=== PATIENT | female | born 2000 | race Caucasian/White ===

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

== ENCOUNTER 2021-04-15 13:26 | Emergency (ER) | payer BC, SELFPAY ==
[2021-04-15 14:14] VITALS: BP 107/65; PULSE 78; RESP 19; TEMP 36.4; O2SAT 100; BMI 20.3
[2021-04-15 14:28] VITALS: BP 107/65; PULSE 78; RESP 16; TEMP 36.4
--- NOTE | 2021-04-15 14:38 | HMH.EDUTC ---
[facility] [place] Impression: Viral syndrome, RSV exposure Pharyngitis Qualifiers: Pharyngitis/tonsillitis etiology: unspecified etiology Qualified Code(s): J02.9 - Acute pharyngitis, unspecified Disposition: Left Without Being Seen Condition on Discharge: Good Instructions: DI for Respiratory Syncytial Virus -- Adults, DI for Viral Syndrome Additional Instructions: Drink plenty of fluids. Take tylenol for pain or fever. Return if you begin to have difficulty breathing. Follow up with your regular doctor. GO TO THE ER FOR ANY WORSENING SYMPTOMS Quarantine until you know the results of your covid-19 test. If it is positive, the health department should call you and give you further instructions about your length of Quarantine and other things. Notify your school or workplace of your results and follow their instructions regarding return to work/school. Prescriptions: Brompheniramine/Pseudoephed/Dm [Bromfed Dm Cough Syrup] 5 ml PO Q6HP PRN #240 ml PRN Reason: Cough Transmission Status: Received by [facility] Azithromycin [Z-Travon 250mg Tab*] 250 mg PO UD DOSE PK #6 tab Transmission Status: Received by [facility] Referrals: Spencer Fregoso MD [Primary Care Provider] - Forms: Work/School Release Time of Disposition: 14:47 Medical Decision Making - Medical Records Medical records reviewed: No: I reviewed the patient's medical records. - Russ Inquiry Pt receiving controlled substance: No Vital Signs: 04/15/21 14:14 04/15/21 14:28 Temperature 97.5 F L 97.5 F L Temperature Source Oral Pulse Rate 78 Pulse Rate [Left] 78 Respiratory Rate 19 16 Blood Pressure 107/65 L Blood Pressure [Right Arm] 107/65 L Blood Pressure Mean [Right Arm] 79 02 Sat by Pulse Oximetry 100 - Lab Data Lab results reviewed: Yes: I reviewed the patient's lab results. Lab Results 04/15/21 14:21: Strep Scn Rapid Clinic Negative Orders (Tests/Meds): ORDERS Category Date Time Status Strep Screen Confirmation Stat Micro 04/15/21 14:21 [place] [facility] [place] - General Stated complaint: cough sore throat runny nose congestion Time Seen by Provider: 04/15/21 14:38 Mode of Arrival: Ambulatory Source of Information: Patient Limitations: No Limitations Description of Symptoms (Recalled from Triage Doc. by RN): PT C/O A SORE THROAT, COUGH AND RUNNY NOSE. HEENT Symptoms (Recalled from RN notes): Yes (SORE THROAT AND NASAL DRAINAGE) Resp Symptoms (Recalled from RN notes): Yes (COUGH) Skin Symptoms (Recalled from RN notes): No MS Symptoms (Recalled from RN notes): No Functional Status (Recalled from RN notes): NA - History of Present Illness Provider Complaint: She states that for the past 3 days she has had chilling, sore throat and she has felt bad. She gets strep throat often, so she is here to be checked for that. She gets tested for covid-19 twice per week for her job. Her covid test have been negative and her last one was yesterday. She was exposed to RSV last week by being around her nephew that has it. - Related Data Home Medications Medication Instructions Recorded Confirmed citalopram 10 mg tablet 10 mg PO DAILY 10/09/18 05/25/20 copper 380 square mm intrauterine INTRAUTERI 06/12/20 device Previous Rx's Medication Instructions Recorded Azithromycin [Z-Travon 250mg Tab*] 250 mg PO UD DOSE PK #6 tab 04/15/21 Brompheniramine/Pseudoephed/Dm 5 ml PO Q6HP PRN #240 ml 04/15/21 [Bromfed Dm Cough Syrup] Allergies Allergy/AdvReac Type Severity Reaction Status Date / Time No Known Allergies Allergy Verified 06/12/20 08:54 - Worker's Comp Is this a Worker's Comp case?: No [facility] History - Hepatitis A Screen Drug use history?: No High risk sexual behaviors?: No History of sexually transmitted infection?: No Currently employed?: No Childcare worker?: No Do you have indoor plumbing?: Yes Do you have electricity?: Yes Attestation statement::
[2021-04-15 18:35] LABS: UTC Strep Screen (Rapid) Negative (Negative)
== END 2021-04-15 15:01 | disposition home or self-care (01) ==
PROVIDERS: Emergency Provider Nurse Practitioner Family; PCP Family Medicine
DX: B34.9 Viral infection, unspecified (principal); J02.9 Acute pharyngitis, unspecified
CPT/HCPCS: 87880; 99203; G0463

== ENCOUNTER 2021-09-20 17:33 | Outpatient (CLI) | payer BC, SELFPAY | END 2021-09-20 18:02 | PROVIDERS: PCP Family Medicine; Visit Provider Nurse Practitioner Family | DX: Z11.1 Encounter for screening for respiratory tuberculosis (principal) | CPT/HCPCS: 86580 ==

== ENCOUNTER 2021-12-08 20:10 | Emergency (ER) | payer BC, SELFPAY ==
[2021-12-08 20:55] VITALS: BP 115/57; PULSE 78; RESP 16; TEMP 36.8; O2SAT 100; BMI 21.9
--- NOTE | 2021-12-08 20:59 | HMH.EDUTC ---
[facility] [place] Disposition Clinical Impression: UTI (urinary tract infection) Qualifiers: Urinary tract infection type: site unspecified Hematuria presence: with hematuria Qualified Code(s): N39.0 - Urinary tract infection, site not specified Disposition: Home, Self-Care Condition on Discharge: Good Instructions: Urinary Tract Infection, Urine Culture, DI for Urinary Tract Infection (UTI), Phenazopyridine Additional Instructions: Drink plenty of fluids. Take tylenol or ibuprofen for pain or fever. Take the medications as directed. Follow up with your regular doctor. GO TO THE ER FOR ANY WORSENING SYMPTOMS The pyridium will make your urine turn orange, this is an expected side effect. It will stain your clothes if it comes into contact with them. We will culture the urine. That will tell what bacteria is causing your infection and which antibiotics will treat it best. Sometimes the first antibiotic we prescribe turns out to not work against different bacteria. So, make sure you follow up within 3 days if you are not getting better. Prescriptions: Ondansetron [Zofran 4mg ODT] 4 mg PO Q8HP PRN #20 tab PRN Reason: Nausea Transmission Status: Pending to [facility] Sulfamethoxazole/Trimethoprim [Bactrim DS tablet] 1 each PO BID 5 Days #10 tab Transmission Status: Pending to [facility] Phenazopyridine HCl [Pyridium 200mg Tablet] 200 pow PO TID #6 tab Transmission Status: Pending to [facility] Referrals: Spencer Fregoso MD [Primary Care Provider] - Time of Disposition: 21:37 Medical Decision Making - Medical Records Medical records reviewed: No: I reviewed the patient's medical records. - Russ Inquiry Pt receiving controlled substance: No Vital Signs: 12/08/21 20:55 12/08/21 21:06 Temperature 98.3 F 98.3 F Temperature Source Oral Pulse Rate 78 Pulse Rate [Left] 78 Respiratory Rate 16 16 Blood Pressure 115/57 L Blood Pressure [Right Arm] 115/57 L Blood Pressure Mean [Right Arm] 76 02 Sat by Pulse Oximetry 100 - Lab Data Lab results reviewed: Yes: I reviewed the patient's lab results. Lab Results 12/08/21 20:57: Urine Color Dark yellow, Urine Appearance Turbid, Urine pH 5.5, Ur Specific Gordon > 1.030 H, Urine Protein 1+, Urine Glucose (UA) Negative, Urine Ketones Negative, Urine Blood Negative, Urine Nitrate Negative, Urine Bilirubin 1+ A, Urine Urobilinogen 0.2, Ur Leukocyte Esterase Negative Orders (Tests/Meds): ED MEDICATIONS Discontinued Medications Generic Name Dose Route Start Last Admin Trade Name Brockq PRN Reason Stop Dose Admin Ondansetron HCl 4 mg 12/08/21 21:31 12/08/21 21:35 Ondansetron 4mg Odt SL 12/08/21 21:32 4 mg ONCE ONE Administration Trimethoprim/Sulfamethoxazole 1 each 12/08/21 21:31 12/08/21 21:35 Sulfa/Trimethoprim 1 Tablet PO 12/08/21 21:32 1 each ONCE ONE Administration ORDERS Category Date Time Status Urine Culture Stat Micro 12/08/21 20:52 Received [facility] [place] HPI - General Stated complaint: POSSIBLE uti Time Seen by Provider: 12/08/21 20:59 Mode of Arrival: Ambulatory Source of Information: Patient Limitations: No Limitations Description of Symptoms (Recalled from Triage Doc. by RN): pt c/o urinary frequency and burning with urination. started this am. HEENT Symptoms (Recalled from RN notes): No Resp Symptoms (Recalled from RN notes): No Skin Symptoms (Recalled from RN notes): No MS Symptoms (Recalled from RN notes): No Functional Status (Recalled from RN notes): wnl - History of Present Illness Provider Complaint: She c/o urinary frequency and dysuria since around 1200 today. - Related Data Home Medications Medication Instructions Recorded Confirmed citalopram 10 mg tablet 10 mg PO DAILY 10/09/18 05/25/20 copper 380 square mm intrauterine INTRAUTERI 06/12/20 device Previous Rx's Medication Instructions Recorded Azithromycin [Z-Travon 250mg Tab*] 250
[2021-12-08 21:01] LABS: Apearance,Urine Turbid (Clear); Blood, Urine Negative (Negative); Color,Urine Dark Yellow (Yellow); Glucose,Urine (UA) Negative (Negative); Ketones,Urine Negative (Negative); PH,Urine 5.5 (5.0-8.5); Protein,Urine 1+ (Negative); Specific Gravity, Urine > 1.030 (1.005-1.030)
[2021-12-08 21:02] LABS: Bilirubin,Urine 1+ (Negative); UTC Leukocyte Esterase,Urine Negative (Negative); UTC Nitrate,Urine Negative (Negative); Urobilinogen,Urine 0.2 EU/dl (0.2)
[2021-12-08 21:06] VITALS: BP 115/57; PULSE 78; RESP 16; TEMP 36.8
== END 2021-12-08 21:39 | disposition home or self-care (01) ==
PROVIDERS: Emergency Provider Nurse Practitioner Family; PCP Family Medicine
DX: N39.0 Urinary tract infection, site not specified (principal); R35.0 Frequency of micturition; F32.A Depression, unspecified; F41.9 Anxiety disorder, unspecified
CPT/HCPCS: 81003; 87086; 99213; G0463

== ENCOUNTER → 2022-03-31 06:52 | Outpatient (CLI) | payer BC, SELFPAY ==
[2022-03-31 17:04] LABS: Basophils # 0.1 K/mm3 (0-0.2); Basophils % 1.2 % (0.1-2.0); Eosinophils % 0.5 % (0.1-12.0); Hematocrit 45.6 % (37.0-47.0); Hemoglobin 14.8 g/dL (12.2-16.2); Lymphocytes # 2.3 K/mm3 (0.7-4.5); Lymphocytes % 37.3 % (10-50); Mean Corpuscular HGB Conc 32.4 g/dL (31.8-35.4); Mean Corpuscular Hemoglobin 30.8 pg (27.0-31.2); Mean Corpuscular Volume 95.2 fl (81-99); Mean Platelet Volume 8.2 fl (7.4-10.4); Monocytes # 0.2 K/mm3 (0.1-1.0); Monocytes % 3.6 % (1.7-9.3); Neutrophils # 3.6 K/mm3 (1.8-7.8); Neutrophils % 57.5 % (37.0-80.0); Platelet Count 291 K/mm3 (142-424); Red Blood Count 4.79 M/mm3 (4.20-5.40); Red Cell Distribution Width 12.7 % (11.5-17.5); White Blood Count 6.2 K/mm3 (4.5-13.0)
[2022-03-31 17:25] LABS: Alanine Aminotransferase 20 U/L (12-78); Albumin Level 4.6 g/dl (3.5-5.0); Albumin/Globulin Ratio 1.6 (1.1-1.8); Alkaline Phosphatase 65 U/L (38-126); Anion Gap 14.1 mEq/L (5-15); Aspartate Amino Transferase 26 U/L (14-36); Bilirubin,Total 0.4 mg/dl (0.2-1.3); Blood Urea Nitrogen 7 mg/dl (7-17); Carbon Dioxide 22 mmol/L (22.0-30.0); Chloride 106 mmol/L (98-107); Chol/HDL Ratio 3.2 (1-3.5); Cholesterol 165 mg/dl (140-200); Estimated Glomerular Filt Rate 107 ml/min (>60); GFR (African American) 129 ML/MIN (>60); Globulin 2.8 g/dL (1.3-3.2); Glucose 141 mg/dl (74-100); HDL Cholesterol 51 mg/dl (40-60); Potassium 4.1 mmoL/L (3.5-5.1); Sodium 138 mmol/L (136-145); Total Protein,Serum 7.4 g/dl (6.3-8.2); Triglycerides 60 mg/dl (30-150); VLDL Cholesterol 12 mg/dL (0-40)
[2022-03-31 17:42] LABS: 25-OH Vitamin D, Total 51.4 ng/mL (30-100)
[2022-03-31 17:43] LABS: Free Thyroxine Index 2.4 ug/dL (5.93-13.13); Triiodothryronine (T3) Uptake 30 % (23.5-40.5)
[2022-03-31 17:57] LABS: Thyroid Stimulating Hormone 0.95 uIU/mL (0.465-4.68)
[2022-03-31 18:14] LABS: Vitamin B12 327 pg/mL (239-931)
[2022-04-01 08:50] LABS: Hemoglobin A1C 4.7 % (4.0-6.0)
[2022-04-02 08:36] LABS: Direct LDL Cholesterol 95 mg/dL (100-129)
[2022-04-02 10:18] LABS: FSH 2.6 mIU/mL (.); LH 3.6 mIU/mL (.); Progesterone 8.5 ng/mL (.); Testosterone,Total 24 ng/dL (13-71)
[2022-04-07 23:59] LABS: Estrogen 282 pg/mL (.)
== END ==
PROVIDERS: PCP Physician Assistant; Visit Provider Physician Assistant
DX: Z00.00 Encounter for general adult medical examination without abnormal findings (principal); L65.9 Nonscarring hair loss, unspecified; R53.83 Other fatigue; R63.5 Abnormal weight gain
CPT/HCPCS: 80053; 80061; 82306; 82607; 82672; 83001; 83002; 83036; 84144; 84403; 84436; 84443; 84479; 85025

== ENCOUNTER 2022-04-28 14:18 | Emergency (ER) | payer BC, SELFPAY ==
[2022-04-28] VITALS (7 sets, daily range): BP systolic 115–144; BP diastolic 50–93; PULSE 70–117; RESP 14–20; TEMP 36.6–37.1; O2SAT 96–100; BMI 21.9
--- NOTE | 2022-04-28 14:16 | ECG_ITS ---
APPROVED REPORT Exam: Resting ECG HR:98 bpm ECG Measurements Heart Rate 98 AXES NV 147 P 66 QRSd 88 QRS 79 QT 317 T 35 QTc 373 Conclusion SINUS RHYTHM NONSPECIFIC ST & T-WAVE ABNORMALITY BORDERLINE ECG UNCONFIRMED REPORT Electronically signed by : Wilfredo Mcallister MD 04/28/2022 19:22:04
--- NOTE | 2022-04-28 14:27 | XR_ITS ---
FINAL REPORT CLINICAL HISTORY: chest pain COMPARISON: 12/14/2018 FINDINGS: A single view of the chest was obtained. The heart is normal in size. The mediastinum is unremarkable. There is no active pulmonary disease. There is no pleural effusion. There is no pneumothorax. There is no acute osseous abnormality. IMPRESSION: No acute cardiopulmonary process. Reviewed, Interpreted and Dictated by Onel Krause III, MD Transcribed by Ritika Sousa Authenticated and [facility]
[2022-04-28 14:39] LABS: Basophils # 0.1 K/mm3 (0-0.2); Basophils % 1.5 % (0.1-2.0); Eosinophils # 0.1 K/mm3 (0.0-0.4); Eosinophils % 0.8 % (0.1-12.0); Hematocrit 46.1 % (37.0-47.0); Hemoglobin 15.2 g/dL (12.2-16.2); Lymphocytes # 2.9 K/mm3 (0.7-4.5); Lymphocytes % 32.4 % (10-50); Mean Corpuscular HGB Conc 32.9 g/dL (31.8-35.4); Mean Corpuscular Hemoglobin 31.2 pg (27.0-31.2); Mean Corpuscular Volume 94.9 fl (81-99); Mean Platelet Volume 7.3 fl (7.4-10.4); Monocytes # 0.5 K/mm3 (0.1-1.0); Monocytes % 5.2 % (1.7-9.3); Neutrophils # 5.3 K/mm3 (1.8-7.8); Neutrophils % 59.9 % (37.0-80.0); Platelet Count 270 K/mm3 (142-424); Red Blood Count 4.86 M/mm3 (4.20-5.40); Red Cell Distribution Width 12.6 % (11.5-17.5); White Blood Count 8.8 K/mm3 (4.5-13.0)
--- NOTE | 2022-04-28 14:40 | PC.NURSE ---
RAD in room
[2022-04-28 14:44] LABS: Chloride 105 mmol/L (98-107); Potassium 3.9 mmoL/L (3.5-5.1); Sodium 140 mmol/L (136-145)
[2022-04-28 14:47] LABS: Anion Gap 12.9 mEq/L (5-15); Blood Urea Nitrogen 7 mg/dl (7-17); Carbon Dioxide 26 mmol/L (22.0-30.0); Creatinine Clearance Estimated 112 mL/min (50-200); Estimated Glomerular Filt Rate 91 ml/min (>60); GFR (African American) 111 ML/MIN (>60)
[2022-04-28 14:48] LABS: Calcium 8.7 mg/dl (8.4-10.2); Glucose 98 mg/dl (74-100)
--- NOTE | 2022-04-28 15:09 | HMH.EDGENADL ---
Discharge Plan Disposition Patient Disposition: Home, Self-Care Condition: Good Prescriptions Prescriptions: No Action ParaGard T 380A 380 square mm intrauterine device INTRAUTERI venlafaxine 37.5 mg tablet 37.5 mg PO DAILY Referrals Follow up/Referrals: Sulema Patel APRN [Primary Care Provider] - See instructions Activity Restrictions/Add. Instructions Additional Instructions/Restrictions: Ibuprofen as needed for pain. Follow-up with primary care provider, call for appointment. Your CT scan suggested thickening of your esophagus, follow-up with your primary care provider for further evaluation. Clinical Impressions Clinical Impression: Chest pain, pleuritic Discharge ED Provider: Felix Mcgill General Adult HPI General Chief complaint: Chest Pain Stated complaint: chest pain Time Seen by Provider: 04/28/22 15:09 Mode of Arrival: Ambulatory Source of Information: Patient Limitations: No Limitations Description of Symptoms (Recalled from ER Triage Doc. by RN): to ed per pvt car with c/o sharp lt side chest pain radiating into back +sob, pt states pain worse with inspiration. pt denies any nausea, vomiting, fever, cough, pain or swelling in legs. History of Present Illness HPI narrative: Complains of left-sided chest pain that began last night. Pain increases when she lies on her left side. Also increases with inspiration. She began feeling short of breath today and therefore came to the emergency department. A couple of years ago she had a spontaneous pneumomediastinum with bilateral pneumothoraces. She says her current pain feels similar. No recent URI symptoms, although she says she tested positive for COVID on a routine test 2 weeks ago. She was asymptomatic. No fever. No hemoptysis. No leg pain or swelling. Related Data Home Medications Medication Instructions Recorded Confirmed copper 380 square mm intrauterine intrauterine 06/12/20 03/31/22 device (ParaGard T 380A) venlafaxine 37.5 mg tablet 37.5 mg PO DAILY 03/31/22 03/31/22 Allergies Allergy/AdvReac Type Severity Reaction Status Date / Time No Known Allergies Allergy Verified 03/31/22 08:36 [facility] PFS Social History Smoking Status: Current every day smoker tobacco type: cigarettes alcohol intake: never substance use type: denies use current occupational status: other Travel in the last 8 weeks: None household members: family housing: house ROS Obtained: Yes Systems reviewed as appropriate & no additional complaints except as documented Constitutional Constitutional: Denies fever(s) and Denies weakness ENT Ears, Nose, Mouth, and Throat: Denies nasal discharge and Denies sore throat Cardiovascular Cardiovascular: Reports chest pain Respiratory Respiratory: Reports shortness of breath, Denies cough, Denies hemoptysis and Reports pain on inspiration Gastrointestinal Gastrointestingal: Denies abdominal pain, constipation, diarrhea or vomiting Genitourinary Female Genitourinary: Denies difficulty voiding, Denies dysuria and Denies flank pain Musculoskeletal Musculoskeletal: Denies numbness Neurologic Neurologic: Denies numbness and Denies weakness Physical Exam General General appearance: alert and in no apparent distress Head Head exam: atraumatic and normocephalic Eye Eye exam: Present normal appearance and EOMI ENT ENT exam: Present mucous membranes moist Neck Neck exam: Present normal inspection and trachea midline Chest Chest inspection: Present normal inspection and symmetric chest wall rise Respiratory Respiratory exam: Present normal lung sounds bilaterally; Absent respiratory distress Cardiovascular Cardiovascular exam: Present regular rate, normal rhythm and normal heart sounds Abdominal Exam Abdominal exam: Present soft and normal bowel sounds; Absent distention, tenderness, guarding, rebound or rigidity Extremities Exam Extremities exam: Present normal inspection; Absent mayra
[2022-04-28 15:15] LABS: Troponin I < 0.01 ng/ml (0.00-0.034)
--- NOTE | 2022-04-28 15:17 | CT_ITS ---
FINAL REPORT TECHNIQUE: Then section axial CT images of the chest were obtained with contrast. Three-D reformatted images were also obtained.This study was performed with techniques to keep radiation doses as low as reasonably achievable (ALARA). Individualized dose reduction techniques using automated exposure control or adjustment of mA and/or kV according to the patient''s size were employed. CLINICAL HISTORY: pleuritic cp, h/o pneumomediastinum COMPARISON: December 14, 2018 FINDINGS: There is diffuse, mild the thickening of the thoracic esophagus favored to be inflammatory. There is no evidence of pulmonary embolism. There is no evidence of thoracic aortic aneurysm or dissection. There is no evidence of mediastinal or hilar mass or adenopathy. There is no evidence of pulmonary mass or suspicious nodule. No localized inflammatory process is seen within the lungs. Limited images of the upper abdomen are unremarkable. IMPRESSION: 1. No evidence of pulmonary embolism. 2. No pulmonary mass. 3. Diffuse, mild thickening of the thoracic esophagus is favored inflammatory. If indicated, upper endoscopy could further evaluate. Reviewed, Interpreted and Dictated by Onel Krause III, MD Transcribed by Crow Alvarenga Authenticated and [facility]
[2022-04-28 15:26] LABS: HCG Qualitative, Serum Negative (Negative)
--- NOTE | 2022-04-28 15:36 | PC.NURSE ---
pt to rad at this time
--- NOTE | 2022-04-28 15:45 | PC.NURSE ---
pt back from RAD via WC
--- NOTE | 2022-04-28 16:05 | PC.NURSE ---
pt and family updated on plan of care
== END 2022-04-28 17:02 | disposition home or self-care (01) ==
PROVIDERS: Emergency Provider Emergency Medicine; PCP Nurse Practitioner Family
DX: R07.89 Other chest pain (principal)
CPT/HCPCS: 71045; 71275; 80048; 84484; 84703; 85025; 93005; 96374; 99285; Q9967

== ENCOUNTER → 2022-07-21 09:00 | Outpatient (CLI) | payer BC, SELFPAY | PROVIDERS: PCP Student in an Organized Health Care Education/Training Program; Visit Provider Student in an Organized Health Care Education/Training Program | DX: M54.50 Low back pain, unspecified (principal) | CPT/HCPCS: 87086 ==

== ENCOUNTER 2022-11-19 08:00 | Emergency (ER) | payer BC, SELFPAY ==
[2022-11-19 08:05] VITALS: BP 122/65; PULSE 71; RESP 20; TEMP 36.9; O2SAT 98; BMI 21.9
--- NOTE | 2022-11-19 08:12 | EXP.UTC ---
Discharge Plan Disposition Patient Disposition: Home, Self-Care Condition: Good Prescriptions Prescriptions: New prednisone 10 mg tablet 10 mg PO BID 3 Days Qty: 6 0RF amoxicillin [amoxicillin] 500 mg tablet 500 mg PO TID 10 Days Qty: 30 0RF [id number] [Bromfed DM] 2-30-10 mg/5 mL Syrup 5 ml PO Q6H PRN (Reason: Cough) Qty: 240 0RF No Action ParaGard T 380A 380 square mm intrauterine device INTRAUTERI citalopram 10 mg tablet 10 mg PO DAILY Label Comments: TAKE ONE TABLET BY MOUTH EVERY DAY Referrals Follow up/Referrals: Sulema Patel APRN [Primary Care Provider] - See instructions Activity Restrictions/Add. Instructions Additional Instructions/Restrictions: Drink plenty of fluids. Take tylenol or ibuprofen for pain or fever. Take the medications as directed. Follow up with your regular doctor. GO TO THE ER FOR ANY WORSENING SYMPTOMS Throw your tooth brush away and get a new one. Clinical Impressions Clinical Impression: Strep throat Instructions Patient Instructions: Strep Throat, DI for Strep Throat Discharge ED Provider: Frantz Bravo [facility] General Stated complaint: sore throat,headache Mode of Arrival: Ambulatory Source of Information: Patient Limitations: No Limitations Time Seen by Provider: 11/19/22 08:12 Description of Symptoms (Recalled from Triage Doc. by RN): sore throat, LI HEENT Symptoms (Recalled from RN notes): Yes Resp Symptoms (Recalled from RN notes): No Skin Symptoms (Recalled from RN notes): No MS Symptoms (Recalled from RN notes): No Functional Status (Recalled from RN notes): n/a History of Present Illness Provider Complaint: She states that for the past 3 days she has had had sore throat, chills, and low grade fever. Related Data Home Medications Medication Instructions Recorded Confirmed copper 380 square mm intrauterine intrauterine 06/12/20 03/31/22 device (ParaGard T 380A) citalopram 10 mg tablet 10 mg PO DAILY Anxiety 11/19/22 11/19/22 Previous Rx's Medication Instructions Recorded amoxicillin 500 mg tablet 500 mg PO TID 10 days #30 tabs 11/19/22 [id number] 5 ml PO Q6H PRN Cough #240 mL 11/19/22 2 mg-30 mg-10 mg/5 mL oral syrup (Bromfed DM) prednisone 10 mg tablet 10 mg PO BID 3 days #6 tabs 11/19/22 Allergies Allergy/AdvReac Type Severity Reaction Status Date / Time No Known Allergies Allergy Verified 11/19/22 08:12 Worker's Comp Is this a Worker's Comp case?: No PFSH PFS Disclaimer: The information contained in this section may have been updated after the patient was seen, as this information can be updated by other users. Social History Smoking Status: Current every day smoker tobacco type: cigarettes alcohol intake: never substance use type: denies use current occupational status: other Travel in the last 8 weeks: None household members: family housing: house ROS Obtained: Yes All systems reviewed & no additional complaints except as documented Constitutional Constitutional: Reports chills and Reports fever(s) Eyes Eyes: Denies eye discharge ENT Ears, Nose, Mouth, and Throat: Reports as per HPI Cardiovascular Cardiovascular: Denies chest pain Respiratory Respiratory: Denies chest congestion and Reports cough Gastrointestinal Gastrointestingal: Reports nausea; Denies abdominal pain, constipation, cramping, diarrhea or vomiting Musculoskeletal Musculoskeletal: Denies arthralgias Integumentary/Breasts Skin/Breast: Denies rash Neurologic Neurologic: Denies paresthesias Physical Exam General General appearance: alert and in no apparent distress Head Head exam: atraumatic, normocephalic and normal inspection Eye Eye exam: Present normal appearance, PERRL and EOMI ENT ENT exam: Present mucous membranes moist and normal external ear exam Expanded ENT Exam TM/Canal
[2022-11-19 08:16] LABS: UTC Strep Screen (Rapid) Negative (Negative)
[2022-11-19 08:28] VITALS: BP 122/65; PULSE 71; RESP 20; TEMP 36.9; O2SAT 98
== END 2022-11-19 08:27 | disposition home or self-care (01) ==
PROVIDERS: Emergency Provider Nurse Practitioner Family; PCP Nurse Practitioner Family
DX: J02.0 Streptococcal pharyngitis (principal); R51.9 Headache, unspecified; F17.210 Nicotine dependence, cigarettes, uncomplicated
CPT/HCPCS: 87880; 99212; 99214; G0463

== ENCOUNTER 2023-12-25 16:44 | Outpatient (CLI) | payer BC, SELFPAY ==
[2023-12-28 22:21] LABS: QuantiFERON-TB Gold Plus Negative (Negative)
== END 2023-12-25 23:59 | disposition home or self-care (01) ==
LOC: LAB 16:45
PROVIDERS: PCP Nurse Practitioner Family; Visit Provider Student in an Organized Health Care Education/Training Program
DX: Z11.1 Encounter for screening for respiratory tuberculosis (principal)
CPT/HCPCS: 36415; 86480